=== PATIENT | female | born 1975 | race Caucasian/White ===

== ENCOUNTER 2023-11-25 17:43 | Emergency (ER) | payer OTHER, SELFPAY ==
[2023-11-25] VITALS (11 sets, daily range): BP systolic 116–152; BP diastolic 69–97; PULSE 69–97; RESP 18–26; TEMP 36.7; O2SAT 96–99; BMI 25.0
--- NOTE | 2023-11-25 17:53 | DI.RAD.S_ITS ---
PROCEDURE: XR CHEST 1V INDICATIONS: chest pain TECHNIQUE: One view of the chest was acquired. COMPARISON: None. FINDINGS: Surgical changes and devices: None. Lungs and pleura: Small 5 mm nodule projects over the right upper lung zone. Lungs are otherwise clear. No pleural effusions or pneumothorax. Mediastinum: Mediastinal contours appear normal. Heart size is normal. Bones and chest wall: No suspicious bony lesions. Overlying soft tissues appear unremarkable. IMPRESSION: No acute cardiopulmonary abnormality is seen. Small 5 mm right upper lung zone pulmonary nodule. Recommend follow-up imaging to document stability. Dictated by: Chris Guillaume M.D. on 11/25/2023 at 19:03 Approved by: Chris Guillaume M.D. on 11/25/2023 at 19:04
--- NOTE | 2023-11-25 18:06 | CM.MNRNOTE ---
patient was walking/hiking earlier and developed a high heart rate. When she rested the heart rate did not come down and then she developed dizziness and chest pressure. She has no history of [place] and this has happened before when she had the flu. She states that she is under an increased level of stress since her mom is in an ICU [place].
[2023-11-25 18:23] LABS: Add Manual Diff / Slide Review NO; Basophils Absolute Auto 100 /uL (0-100); Basophils Percent Auto 0.8 % (0-2); Eosinophils Absolute Auto 200 /uL (0-450); Eosinophils Percent Auto 2.3 % (2-4); Hemoglobin 14.4 g/dL (12.0-16.0); Lymphocytes Absolute Auto 3000 /uL (1100-4500); Lymphocytes Percent Auto 31.8 % (25-40); Mean Corpuscular HGB Conc 33.5 % (30-36); Mean Corpuscular Hemoglobin 30.7 PG (26-34); Mean Corpuscular Volume 91.5 fL (80-100); Monocytes Absolute Auto 600 /uL (0-900); Monocytes Percent Auto 6.8 % (3-14); Neutrophils Absolute Auto 5400 /uL (1500-7000); Neutrophils Percent Auto 58.3 % (50-75); Platelet Count 277 X10^3/uL (150-400); Red Cell Distribution Width 12.4 % (11.6-14.8); White Blood Cell Count 9.3 X10^3/uL (4.5-11.0)
[2023-11-25 18:33] LABS: INR 1.1 (0.9-1.3); Prothrombin Time 12.3 SECONDS (9.4-12.5)
[2023-11-25 18:36] LABS: PTT Partial Thromboplastin Tim 34 SECONDS (25.1-36.5)
[2023-11-25 18:37] LABS: Alanine Aminotransferase 21 IU/L (<35); Albumin 5.1 g/dL (3.5-5.0); Albumin Globulin Ratio 1.5 (1.0-2.8); Alkaline Phosphatase 58 U/L (38-126); Aspartate Aminotransferase 23 IU/L (14-36); BUN Creatinine Ratio 19.7 (6-22); Bilirubin Total 0.6 mg/dL (0.2-1.3); Blood Urea Nitrogen 14 mg/dL (7-17); Calcium 9.5 mg/dL (8.4-10.2); Carbon Dioxide 27 mmol/L (22-32); Chloride 105 mmol/L (98-107); Creatine Kinase 55 U/L (30-135); Estimated Glomerular Filt Rate > 60 mL/min (>60); Globulin 3.4 g/dL (1.7-4.1); Glucose 110 mg/dL (70-100); HEMOLYSIS < 15 (0-50); Lipase 316 U/L (23-300); Magnesium 2.1 mg/dL (1.6-2.3); Potassium 3.3 mmol/L (3.4-5.1); Sodium 141 mmol/L (137-145); Total Protein 8.5 g/dL (6.3-8.2)
[2023-11-25 18:48] LABS: Troponin I < 0.012 ng/mL (0.01-0.034)
--- NOTE | 2023-11-25 21:07 | ED_ITS ---
HPI - Arrhythmia/Palpitations General Chief Complaint: Arrhythmia/Palpitations Stated Complaint: Rapid heartbeat, chest pain, dizziness Time Seen by Provider: 11/25/23 20:36 History of Present Illness HPI narrative: 47-year-old female without history of previous heart rate or rhythm problems, no known CAD, feeling stressed with her mother having been recently admitted to ICU in [place], earlier this morning was having irregular heartbeat sensation, no syncope or presyncopal symptoms, no chest pain at that time. This afternoon 3:00 p.m. or so she was hiking and exerting herself, having increased shortness of breath, her garment wrist watch indicated heart rate in the 130s, which made her concerned. She again had no syncope or presyncopal symptoms. She had never had similar problems before. Chest discomfort during her increased heart rate, no associated diaphoresis, no radiation of symptoms to her back arm neck. Symptoms resolved with rest. Context: occurred during exertion Related Data Allergies Allergy/AdvReac Type Severity Reaction Status Date / Time No Known Drug Allergies Allergy Verified 11/25/23 17:46 Review of Systems Review of Systems Narrative: As per HPI Patient History Social History Smoking Status: Former smoker Smoking Status: Former smoker alcohol intake frequency: a few times a week Alcohol type: wine Substance Use Type: does not use Exam Initial Vital Signs Initial Vital Signs: Vital Signs Temperature 98.1 F 11/25/23 17:46 Pulse Rate 97 H 11/25/23 17:46 Respiratory Rate 18 11/25/23 17:46 Blood Pressure 149/95 H 11/25/23 17:46 Pulse Oximetry 98 11/25/23 17:46 Oxygen Delivery Method Room Air 11/25/23 17:46 Const General: cooperative and comfortable HENTN Head: normal to inspection and atraumatic Ears: external ears normal Face and sinus: face symmetric Mouth: oral mucosae normal Eyes Eyelids: eyelids normal Neck Neck: normal visual inspection and trachea midline Chest Chest: normal inspection of the chest Resp Effort & Inspection: normal respiratory effort and no use of accessory muscles Auscultation: clear to auscultation bilaterally Cardio Rate: regular rate Rhythm: regular rhythm GI Inspection: non-distended Palpation: soft and No guarding Back/Spine/Pelvis Back: No CVA tenderness Skin General: no rashes or lesions noted Neuro General: patient alert Extrem General: no pedal edema and no calf tenderness Psych Attitude: cooperative Thought Content: normal Course Orders Ordered: Discontinued Medications Aspirin (Aspirin 81 Mg Chew Tab) 324 mg PO NOW ONE Stop: 11/25/23 17:54 Last Admin: 11/25/23 19:05 Dose: Not Given Documented By: MALINI Potassium Chloride (Potassium Chloride 20 Meq/15 Ml Udc) 40 meq PO NOW ONE Stop: 11/25/23 21:15 Last Admin: 11/25/23 21:26 Dose: 40 meq Documented By: NILA Reevaluation(s) Reevaluation #1: EKG chest x-ray and labs unremarkable. Patient with resolved exertional chest discomfort, low risk for CAD. Symptoms for many hours prior to arrival, with no recurrence of chest pain, initial troponin negative, we will hold on repeat delta troponin for now, patient/family in agreement. Could consider exercised induced dysrhythmia/tachyarrhythmia, though suspect likely sinus tachycardia and deconditioning. Advised use of aspirin daily. Follow up with Cardiology for further testing as an outpatient for now. Reevaluation #2: Labs she did show mild hypokalemia 3.3, oral repletion dose in ED, consider follow-up recheck Vital Signs Vital signs: Vital Signs - 8 hr 11/25/23 17:46 11/25/23 18:01 11/25/23 18:02 Temperature 98.1 F Pulse Rate 97 H 87 84 Respiratory Rate 18 21 21 Blood Pressure 149/95 H Pulse Oximetry 98 98 98 Oxygen Delivery Method Room Air 11/25/23 18:02 11/25/23 18:30 11/25/23 18:30 Temperature Pulse Rate 76 Respiratory Rate 23 Blood Pressure 140/87 128/82 Pulse Oximetry 96 Oxygen Delivery Method MDM - Arrhythmia/Palpitations Differential Diagnosis Differential diagnosis: Likely palpitations, sinus tachycardia, artial fibrillation, artial flutter, ventricular premature beats, supraventricular tachycardia and ventricular tachycardia Lab Data 11/25/23 18:00 11/25/23 18:00 Labs: Lab Results 11/25/23 Range/Units 18:00 WBC 9.3 (4.5-11.0) X10^3/uL RBC 4.70 (4.0-5.2) X10^6/uL Hgb 14.4 (12.0-16.0) g/dL Hct 43.0 (36-46) % MCV 91.5 (80-100) fL MCH 30.7 (26-34) PG MCHC 33.5 (30-36) % RDW 12.4 (11.6-14.8) % Plt Count 277 (150-400) X10^3/uL Neut % (Auto) 58.3 (50-75) % Lymph % (Auto) 31.8 (25-40) % [place] % (Auto) 6.8 (3-14) % Eos % (Auto) 2.3 (2-4) % Baso % (Auto) 0.8 (0-2) % Neut # (Auto) 5400 (4849-6165) /uL Lymph # (Auto) 3000 (6323-1906) /uL [place] # (Auto) 600 (0-900) /uL Eos # (Auto) 200 (0-450) /uL Baso # (Auto) 100 (0-100) /uL PT 12.3 (9.4-12.5) SECONDS INR 1.1 (0.9-1.3) APTT 34 (25.1-36.5) SECONDS Sodium 141 (137-145) mmol/L Potassium 3.3 L (3.4-5.1) mmol/L Chloride 105 (98-107) mmol/L Carbon Dioxide 27 (22-32) mmol/L BUN 14 (7-17) mg/dL Creatinine 0.71 (0.52-1.04) mg/dL Estimated GFR > 60 (>60) mL/min BUN/Creatinine Ratio 19.7 (6-22) Glucose 110 H (70-100) mg/dL Calcium 9.5 (8.4-10.2) mg/dL Magnesium 2.1 (1.6-2.3) mg/dL Total Bilirubin 0.6 (0.2-1.3) mg/dL AST 23 (14-36) IU/L ALT 21 (<35) IU/L Alkaline Phosphatase 58 (38-126) U/L Total Creatine Kinase 55 (30-135) U/L Troponin I < 0.012 (0.01-0.034) ng/mL Total Protein 8.5 H (6.3-8.2) g/dL Albumin 5.1 H (3.5-5.0) g/dL Globulin 3.4 (1.7-4.1) g/dL Albumin/Globulin Ratio 1.5 (1.0-2.8) Lipase 316 H (23-300) U/L ECG Data Interpretation: Normal sinus rhythm with a rate of 85, normal [place] interval, normal QRS and QTC intervals. No obvious ST segment elevation or depression changes. Discharge Plan Departure Patient Disposition: Home Clinical Impression: Exertional chest pain, Tachycardia Instructions: Arrhythmias Activity Restrictions/Additional Instructions: Reported intermittent palpitations and irregular heartbeat sensation through the day today, then some exercise induced chest discomfort during hiking, with wrist garments device showing fast heart rate 100 and 30s, symptoms resolved with rest. No known coronary artery disease. Screening EKG and blood testing was not suggestive of heart attack at this time. Did have a mildly low serum potassium level, oral dose repletion provided. Consider recheck of your potassium as an outpatient for now and follow-up. Consider further cardiac testing as needed with electronic commerce specialist as an outpatient basis for now, contact information given for on-call electronic commerce specialist, contact their office tomorrow. Return to the emergency department for any change worsening symptoms or any concerns prior Referrals: Doctor Garcia MD [Primary Care Provider] - Stand Alone Forms: Patient Portal/API
[2023-11-25] MEDS: POTASSIUM CHLORIDE 20 MEQ/15 ML UDC 40 MEQ PO (21:26)
== END 2023-11-25 21:36 | disposition home or self-care (01) ==
PROVIDERS: Emergency Medicine; Emergency Provider Emergency Medicine
DX: R07.9 Chest pain, unspecified (principal); R00.0 Tachycardia, unspecified
CPT/HCPCS: 71045; 80053; 82550; 83690; 83735; 84484; 85025; 85610; 85730; 93005; 93010; 99283; 99284

== ENCOUNTER → 2024-02-25 13:51 | Outpatient (CLI) | payer BC, SELFPAY ==
--- NOTE | 2024-02-25 | DI.ECHO.S_ITS ---
[place] [facility]+ [facility] : : [address] : : [place] : : [id number] : : Phone: [phone] Echocardiogram Report + + :Name: SANTOSH MONZON Study Date: 02/25/2024 Height: 65 in : :Hospital ReadingLocation: Weight: 155 lb : : Gender: Female BSA: 1.8 m2 : :: 1975 Age: 48 yrs BP: 154/88 mmHg: :Reason For Study: CHEST PAIN : :Ordering Physician: LEXI GARRETT Performed By: Abel Travis : :Referring: LEXI GARRETT : + + Interpretation Summary 1. The left ventricular contractility is normal. Estimated ejection fraction is greater than 55% with no segmental wall motion abnormalities. No LVH. Normal diastolic function. 2. The right ventricular contractility is normal. 3. All cardiac chambers are of normal size. 4. No significant valvular abnormalities. 5. No obvious cardiac shunts. 6. No obvious intracardiac masses nor thrombi. 7. No hemodynamically significant pericardial effusion. 8. Low right-sided filling pressures. Conclusion: Normal biventricular systolic function with no significant valvular abnormalities. Procedure: A two-dimensional transthoracic echocardiogram with color flow and Doppler was performed. The study quality was technically adequate. There is no prior echocardiogram noted for this patient. The patient was in sinus rhythm with heart rates between 74-90 bpm during the exam. Left Ventricle: The left ventricle is normal in size and wall thickness. The ejection fraction is estimated to be 55-60%. Right Ventricle: The right ventricle is normal size. The right ventricular systolic function is normal. Atria: The left atrial size is normal. Right atrial size is normal. The interatrial septum grossly appears intact with no obvious evidence for an atrial septal defect. Mitral Valve: The mitral valve is normal. There is no mitral valve stenosis. There is trace mitral regurgitation. Aortic Valve: The aortic valve is trileaflet. There is no aortic valve stenosis. No aortic regurgitation is present. Tricuspid Valve: The tricuspid valve is normal. There is no tricuspid stenosis. No tricuspid regurgitation. Pulmonic Valve: The pulmonic valve is not well visualized. There is no pulmonic valvular stenosis. There is no pulmonic valvular regurgitation. Great Vessels: The aortic root is normal size. The dimensions of the ascending aorta are normal. The IVC is of normal diameter and collapses greater than 50% with a sniff. This suggests a low right atrial pressure of 3 mm Hg. Pericardium/ Pleura There is no pericardial effusion. There is no pleural effusion. MMode/2D Measurements & Calculations LVIDd: 4.6 cm LVOT diam: 1.8 cm LVIDs: 2.9 cm Ao root diam: 2.9 cm FS: 36.5 % asc Aorta Diam: 2.7 cm IVSd: 0.72 cm LVPWd: 0.68 cm LV mckeon. diameter/BSA (cm/m^2): 2.6 LV sys. diameter/BSA (cm/m^2): 1.7 LA A2 area: 13.3 cm2 RA long axis: 4.1 cm LA A4 area: 12.9 cm2 RA area: 12.7 cm2 LA length (vol): 4.7 cm RA vol: 33.4 ml LA vol: 31.2 ml RA : 18.8 ml/m2 LA vol index: 17.6 ml/m2 IVC diam: 1.6 cm RVD1 (basal): 3.4 cm RVD2 (mid): 3.2 cm TAPSE: 2.5 cm Doppler Measurements & Calculations Ao V2 max: 134.3 cm/sec LVOT Max Roni: 103.9 cm/sec Ao V2 mean: 97.5 cm/sec LV V1 max P.3 mmHg Ao max P.2 mmHg LV V1 VTI: 21.2 cm Ao mean P.1 mmHg KATE(I,D): 2.0 cm2 Ao V2 VTI: 26.7 cm KATE(V,D): 1.9 cm2 sev ratio: 0.79 KATE indexed to BSA (cm^2/m^2): 1.1 MV E max roni: 93.9 cm/sec PA V2 max: 125.8 cm/sec MV A max roni: 51.8 cm/sec PA V2 mean: 83.3 cm/sec MV E/A: 1.8 PA mean P.1 mmHg Med Peak E' Roni: 10.4 cm/sec PA pr(Accel): 31.0 mmHg E/E' med: 9.0 Lat Peak E' Roni: 12.0 cm/sec E/E' lat: 7.8 E/e' average: 8.4 MV dec time: 0.16 sec SV([facility]): 53.3 ml Reading Physician:
== END ==
PROVIDERS: Referring Provider Internal Medicine; Visit Provider Internal Medicine
DX: R07.9 Chest pain, unspecified (principal)
CPT/HCPCS: 93306

== ENCOUNTER → 2024-03-08 | Outpatient (CLI) | payer BC, SELFPAY ==
--- NOTE | 2024-03-08 15:14 | DI.NM.S_ITS ---
PROCEDURE: NM EXERCISE TREADMILL NON NUC COMPARISON: None. INDICATIONS: Chest pain FINDINGS: The patient exercised for 8 minutes and 59 seconds reaching 98% of maximum predicted heart rate. Appropriate BP response to exercise. Above average exercise tolerance (8.9METs, ALESSIA -8%). No angina, no diagnostic ST changes, and no ectopy during exercise or recovery. IMPRESSION: Low risk, normal treadmill only stress test with above average exercise tolerance (ALESSIA -8%). Dictated by: Deloris Bowden MD on 03/09/2024 at 14:41 Approved by: Deloris Bowden MD on 03/09/2024 at 14:42
== END ==
LOC: RAD 15:14
PROVIDERS: Referring Provider Internal Medicine; Visit Provider Internal Medicine
DX: R07.9 Chest pain, unspecified (principal)
CPT/HCPCS: 93017